=== PATIENT | male | born 1960 | race Caucasian/White ===

== ENCOUNTER 2022-01-11 08:54 | Day surgery (SDC) | payer BC, OTHER ==
--- NOTE | 2022-01-11 08:05 | HP ---
DATE OF SURGERY: 01/11/2022 HISTORY OF PRESENT ILLNESS: The patient is a 61-year-old with history of colon cancer in the past. No bloody stools. No recent change in bowel movements. He is in need of follow up screening colonoscopy. Last colonoscopy was done in the OR system. Request of the OR system for follow up screening colonoscopy. PAST MEDICAL HISTORY: He had cancer in the past, chronic obstructive pulmonary disease, reflux in the past. History of benign pancreatic mass in the past. PAST SURGICAL HISTORY: Partial colectomy in the past. Splenectomy in the past. Cholecystectomy in the past. Lysis of adhesions in the past. Right inguinal hernia repair in the past. MEDICATIONS: He denies any current medication. ALLERGIES: ERBITUX (CHEMOTHERAPY). FAMILY HISTORY: Breast cancer. SOCIAL HISTORY: No alcohol abuse. REVIEW OF SYSTEMS: Fourteen systems reviewed. No chest pain or palpitations. Other systems negative or noncontributory as above and per preadmission questionnaire. PHYSICAL EXAMINATION: GENERAL: No acute distress. HEENT: Sclerae nonicteric. NECK: No JVD. CHEST: Equal excursion, nonlabored breathing. CVS: Regular rate and rhythm. ABDOMEN: Soft. No peritoneal signs. EXTREMITIES: No significant edema. NEURO: Alert, oriented, moving extremities symmetrically. RECTAL: Deferred timed to endoscopy exam. PSYCH: Appropriate mood and affect. IMPRESSION: History of colon cancer in the past. He is in need of follow up screening colonoscopy as requested by the OR. Risks explained in detail including but not limited to bleeding or infection, risk of bowel injury or perforation possibly requiring further procedure, risk of missed or nondiagnosis or incomplete exam, possibly requiring barium enema, other studies or procedures, general risk of anesthesia or sedation, risk of bowel prep not limited to, consent obtained. Will proceed with outpatient colonoscopy under MAC anesthesia.
[2022-01-11] MEDS ORDERED: Lactated Ringers 1,000 ML IV SCH (09:30)
[2022-01-11] MEDS ORDERED: DIPRIVAN 200 MG/20 ML IV ONE ×2 (10:57→11:11)
[2022-01-11] MEDS ORDERED: Versed 2 MG/2 ML Injection ONE (10:58)
[2022-01-11 12:01] VITALS: BP 114/86; PULSE 73; O2SAT 99
--- NOTE | 2022-01-11 14:27 | OP ---
SURGERY DATE/TIME: 01/11/2022 1058 PREOPERATIVE DIAGNOSIS: Prior history of colon cancer, need for follow up colonoscopy at the request from the [place] system. POSTOPERATIVE DIAGNOSES: 1) ASA Class II. 2) Fair prep. 3) Small early polyp sigmoid colon. 4) Small vague raised area versus hyperplasia of the mucosa transverse colon. 5) Patent anastomotic site. No gross evidence of recurrence of anastomosis. PROCEDURES: 1) Colonoscopy to terminal ileum with hot biopsy polypectomy small early polyp versus hyperplastic lesion sigmoid colon. 2) Hot biopsy small vague raised area versus hyperplasia mucosa transverse colon. SURGEON: Dr. Praneeth Phillips. ANESTHESIA: MAC. ESTIMATED BLOOD LOSS: Minimal. INDICATIONS: As noted above. Risks and benefits explained in detail but not limited to and consent obtained. DESCRIPTION OF PROCEDURE AND FINDINGS: The patient is taken to the endoscopy room. MAC anesthesia induced. After official time out and no disagreement with planned procedure, digital rectal exam did not reveal any rectal masses. Video colonoscope inserted and passed up through the tortuous sigmoid, descending, transverse colon around to the ileal transverse colic anastomotic site. The small bowel was unremarkable. Anastomosis widely patent. No evidence of any recurrence. Prep overall was fair. A little bit of liquidy semisolid stool just slightly limiting the exam for very small lesions. The scope is slowly and carefully withdrawn over the next eight minutes. No signs of any large polyps, masses or obstructing lesions. There was a little small vague raised area versus early polyp very hyperplastic lesion in mucosa removed with hot biopsy forceps in the transverse colon. The scope pulled back to sigmoid colon. Small 2 mm early polyp versus hyperplastic lesion removed with hot biopsy forceps removed with brief bursts of cautery. Good hemostasis noted. Again, this small early polyp was removed in the sigmoid colon. The remainder of the col on and rectum no signs of any large polyps, masses or obstructing lesions. The patient tolerated the procedure well. There were no immediate complications.
== END 2022-01-11 12:07 | disposition home or self-care (01) ==
LOC: SDC 08:54
PROVIDERS: ATTEND Surgery
DX: Z08 Encounter for follow-up examination after completed treatment for malignant neoplasm (principal); Z85.038 Personal history of other malignant neoplasm of large intestine; D12.5 Benign neoplasm of sigmoid colon
CPT/HCPCS: J2250; J2704

== ENCOUNTER 2023-10-07 13:43 | Emergency (ER) | payer OTHER ==
--- NOTE | 2023-10-07 14:01 | ERPHSYRPT ---
- History of Present Illness Time Seen by Provider: 10/07/23 14:01 Source: patient, family Exam Limitations: no limitations Physician History: This is a 63-year-old white male patient who presents with left eye pain for approximately 2 days. Patient has had frequent episodes iritis and he feels that this is another episode. He did use some prednisolone steroid drops and it helped take the edge off of the discomfort. He called the [facility], which is where he receives his medical care typically, and they told him come to the emergency department. Patient denies any specific injury although he had been cutting wood. He has no visual changes. He has no light sensitivity. Timing/Duration: day(s) (Last couple of days) Location: left eye Severity: mild (To moderate) Apparent Injury: possibly Associated Symptoms: burning, other (Conjunctivitis), No sensitivity to light, No eyelid swelling, No foreign body sensation Visual Assistive Devices: None Allergies/Adverse Reactions: cetuximab [From Erbitux] Allergy (Severe, Verified 10/07/23 13:52) Home Medications: Cyanocobalamin (Vitamin B-12) [B-12] 1,000 mcg PO DAILY 01/11/22 [History] Omeprazole 20 mg PO DAILY 01/11/22 [History] Cholecalciferol (Vitamin D3) [Vitamin D] 2,000 unit PO DAILY 10/07/23 [History] Vit A/Vit C/Vit E/Zinc/Copper [Eye Multivitamin Tablet] 1 tab PO BID 10/07/23 [History] Hx Tetanus, Diphtheria Vaccination/Date Given: (unknown) Hx Influenza Vaccination/Date Given: Yes Hx Pneumococcal Vaccination/Date Given: No Travel Risk - International Travel Have you traveled outside of the country in past 3 weeks: No - Emerging Infectious Disease Are you exhibiting symptoms associated with any current EIDs: No - Review of Systems Constitutional: No Symptoms Eyes: Eye Redness (I), No Photophobia, No Tearing, No Foreign Body Sensation Ears, Nose, & Throat: No Symptoms Respiratory: No Symptoms Cardiac: No Symptoms Abdominal/Gastrointestinal: No Symptoms Genitourinary Symptoms: No Symptoms Musculoskeletal: No Symptoms Skin: No Symptoms Neurological: No Symptoms Psychological: No Symptoms Endocrine: No Symptoms Hematologic/Lymphatic: No Symptoms Immunological/Allergic: No Symptoms All Other Systems: Reviewed and Negative - Past Medical History Pertinent Past Medical History: Yes Neurological History: No Pertinent History ENT History: No Pertinent History Cardiac History: No Pertinent History Respiratory History: No Pertinent History Endocrine Medical History: No Pertinent History Musculoskeletal History: Fractures GI Medical History: Colorectal Cancer, GERD, Gallbladder Disease, Hernia History: No Pertinent History Psycho-Social History: No Pertinent History Male Reproductive Disorders: No Pertinent History Other Medical History: 1978 chlamydia while in , stage 4 colon ca, back broke 2x, hearing difficulties, 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 dilation of esophagus, colonoscopy w/ polyp removal. spleen removed - Social History Smoking Status: Never smoker Exposure to second hand smoke: No Drug Use: marijuana Patient Lives Alone: Yes - Nursing Vital Signs Nursing Vital Signs: Initial Vital Signs Temperature 97.7 F 10/07/23 13:56 Pulse Rate 74 10/07/23 13:56 Respiratory Rate 18 10/07/23 13:56 Blood Pressure 121/74 10/07/23 13:56 O2 Sat by Pulse Oximetry 99 10/07/23 13:56 Pain Scale Pain Intensity 2 - Physical Exam General Appearance: no apparent distress, alert Eye Exam: right eye: normal inspection, left eye: conjunctival inflammation (Conjunctivitis), bilateral eye: PERRL, EOMI Ears, Nose, Throat Exam: normal ENT inspection, moist mucous membranes Neck Exam: normal inspection, non-tender, supple, full range of motion Respiratory Exam: airway intact, No chest tenderness, No respiratory distress Gastrointestinal Exam: No tenderness Extremity Exam: normal inspection, normal range of motion, shah, No pelvis stable Neurologic: alert, oriented x 3, cooperative, crab fisherman II-XII nml as tested, normal mood/affect, nml cerebellar function, nml station & gait, sensation nml Skin Exam: normal color, warm, dry Lymphatic: No adenopathy SpO2 Interpretation: normal O2 Delivery: Room Air - Course Nursing assessment & vital signs reviewed: Yes - Progress Progress: unchanged Progress Note: 10/07/23 14:24 My medical decision making and the assignment of low complexity to this patient's medical issue was based on review of the patient's past medical history, review the patient's medication list, review the patient drug allergy list, history present illness and physical findings on examination. No radiographic or laboratory studies are necessary in this patient. Differential diagnosis includes foreign body left eye, corneal abrasion, conjunctivitis, iritis No obvious foreign body or corneal abrasion appreciated on magnified eye examination. There is conjunctivitis present. Counseled pt/family regarding: diagnosis, need for follow-up Medical Desision Making - Diagnostic Testing Diagnostic test were ordered, analyzed, and reviewed by me: No - Risk of complications The pt has a mod risk of morbidity or mortality based on: Need for prescription drug management - Departure Departure Disposition: Home Clinical Impression: Left conjunctivitis, Iritis Condition: Stable Critical Care Time: No Referrals: [facility]OSP[facility] [Primary Care Provider] - Follow up/PCP as directed Additional Instructions: Hold your topical steroid eyedrops for now. Use your topical eye antibiotic as prescribed as well as your oral steroid medication. Called the [facility] today, 10/07/2023, to make arrangements for follow-up appointment for next week. Prescriptions: Prednisone 10 mg [Deltasone 10 mg] 10 mg PO TID #12 tablet Erythromycin Base 3.5 gm [Erythromycin 3.5 GM OPHTH.] 3.5 gm OP QID #1 unit
[2023-10-07 14:06] VITALS: TEMP 97.7
[2023-10-07 14:43] VITALS: BP 105/73; PULSE 72; RESP 17; O2SAT 100
== END 2023-10-07 14:43 | disposition home or self-care (01) ==
LOC: ED 13:43
DX: H57.12 Ocular pain, left eye (principal); H10.89 Other conjunctivitis; H20.9 Unspecified iridocyclitis
CPT/HCPCS: 99281

== ENCOUNTER 2024-08-02 10:27 | Day surgery (SDC) | payer OTHER ==
[2024-08-02] MEDS ORDERED: Lactated Ringers 1,000 ML IV ONE (10:34)
[2024-08-02] MEDS ORDERED: Xylocaine-Mpf 2% 5 Ml Vial ONE (11:39)
[2024-08-02] MEDS ORDERED: propofoL IV ONE (11:39)
[2024-08-02 12:22] VITALS: RESP 16
[2024-08-02 12:30] VITALS: BP 116/60; PULSE 70; TEMP 97.1; O2SAT 99
--- NOTE | 2024-08-03 09:44 | OP ---
SURGERY DATE/TIME: 08/02/2024 [id number] PREOPERATIVE DIAGNOSIS: Dysphagia. POSTOPERATIVE DIAGNOSIS: Dysphagia secondary to esophageal stricture. PROCEDURE: Esophagogastroduodenoscopy with dilatation. SURGEON: Darshan Ivory MD ANESTHESIA: IV anesthesia. PATIENT CONDITION: Stable. COMPLICATIONS: None. SPECIMENS: None. INDICATIONS: The patient is a 64-year-old male who has had previous dilatation done before. He has been off his PPI, and we recommended that he restart that. He has restarted that. He does still have dysphagia, primarily just solids. That stuff feels like it is getting stuck in the distal esophagus. Discussed with him. He does want to proceed with possible dilatation. Risk of infection, bleeding, perforation. FINDINGS: Just a little benign-appearing esophageal stricture dilated to 20 cm. Moderate mucosal disruption. DESCRIPTION OF PROCEDURE: The patient was brought to the endoscopy suite. Routinely positioned and prepared. IV anesthesia induced by Anesthesia. The gastroscope was inserted through the mouth and advanced to the duodenum. Duodenum and stomach are normal in appearance. At the distal esophagus 39 cm, there is an esophageal stricture. It appears to be about 17 or 18 mm. That the 20 mm balloon is then placed and then sterilely dilated up to 20 mm. The balloon actually did pop at the third stage but the balloon was removed. The scope is reinserted. That the esophagus was evaluated. There is moderate mucosal disruption at that level. No sign of perforation. This is hemostatic, satisfactory appearing. The stomach is suctioned out. Scope was withdrawn. RECOMMENDATIONS: He is to stay on a full liquid diet for 1 week. At 1 week, he can start doing a soft diet in which he can take from 7 to 14 days after the procedure. Then, I need to see him in the office here within 2 weeks. He will need to stay on a lifelong PPI for this esophageal stricture.
== END 2024-08-02 12:39 | disposition home or self-care (01) ==
LOC: SDC 10:27
PROVIDERS: ATTEND Surgery
DX: K22.2 Esophageal obstruction (principal); R13.10 Dysphagia, unspecified
CPT/HCPCS: C1726; J2704